=== PATIENT | female | born 1995 | race Two or more races ===

== ENCOUNTER 2025-02-24 | Emergency (ER) | payer OTHER ==
[~2025-02-24] VITALS: Ht 157.5 cm; Wt 79.4 kg
[2025-02-24] MEDS ORDERED: HYOSCYAMINE SULFATE 0.125 MG TAB.SUBL SL STA (01:07)
[2025-02-24] MEDS ORDERED: 0.9 % SODIUM CHLORIDE 1,000 ML IV ONE (01:15)
[2025-02-24 01:34] LABS: URINE APPEARANCE Clear; URINE BILIRRUBIN Negative (NEGATIVE); URINE BLOOD Negative; URINE COLOR Yellow; URINE GLUCOSE Negative (NEGATIVE); URINE KETONE Trace (NEGATIVE); URINE LEUKOCYTE Negative; URINE NITRATE Negative; URINE PROTEIN Trace (NEGATIVE); URINE UROBILINOGEN 1.0 E.U./dl
[2025-02-24 01:37] LABS: URINE BACTERIA 933.5 uL (0.0-1933); URINE EPITHELIAL CELLS 18.4 uL (0.0-38.8); URINE RBC 14.8 uL (0.0-20.8); URINE WBC 7.2 uL (0.0-23.2)
[2025-02-24 01:40] LABS: BASO % 0.6 % (0.1-1.2); EOS # 0.47 (0.04-0.54); EOS % 3.2 % (0.7-7.0); LYMPH # 4.25 (1.18-3.74); LYMPH % 29.0 % (19.3-53.1); MEAN PLATELET VOLUME 10.10 fl (9.4-12.4); MONO # 0.88 (0.24-0.82); MONO % 6.0 % (4.7-12.5); NEUT # 8.91 (1.56-6.13); NEUT % 60.9 % (34.0-71.1); RED CELL DISTRIBUTION WIDTH 14.4 % (11.6-14.4)
[2025-02-24 01:49] LABS: URINE CAST 0.43 uL (0.0-1.40)
[2025-02-24 02:06] LABS: INR 1.0
[2025-02-24 02:10] LABS: ALT/SGPT 35.0 U/L (12-78); AST/SGOT 23.0 U/L (15-37); BILIRUBIN TOTAL 0.38 mg/dL (0.3-1.2); BUN CREA RATIO 25.0 (7.0-25.0); CREATININE SERUM 0.69 mg/dL (0.55-1.02); GFR 101.3; GLOBULINA 5.0 G/DL (2.4-3.5); GLUCOSE FASTING 93.0 mg/dL (65-100); OSMOLALITY SERUM 281.0 MOSM/KG (275-295)
[2025-02-24] MEDS ORDERED: MIRALAX510 GM PO (05:45)
[2025-02-24] MEDS ORDERED: LEVSIN/SL0.125 MG SL (05:45)
== END 2025-02-24 06:01 ==
LOC: ER 00:06
PROVIDERS: General Practice
DX: R10.32 Left lower quadrant pain (principal); K59.00 Constipation, unspecified; Z88.0 Allergy status to penicillin; Z88.6 Allergy status to analgesic agent